=== PATIENT | female | born 2005 | race Caucasian/White ===

== ENCOUNTER 2025-03-16 13:51 | Emergency (ER) | payer BC ==
[2025-03-16 15:03] LABS: #Basophils 0.06 10x3/uL (0.0-0.2); #Eosinophils 0.15 10x3/uL (0.0-0.5); #Monocytes 0.75 10x3/uL (0.0-1.1); #Neutrophils 10.33 10x3/uL (1.5-8.4); %Basophils 0.5 % (0.0-2.0); %Eosinophils 1.1 % (0.0-6.0); %Lymphocytes 13.0 % (18.0-47.0); %Monocytes 5.7 % (0.0-10.0); %Neutrophils 77.8 % (40.0-75.0); Hematocrit 32.9 % (34.9-44.5); Hemoglobin 10.9 g/dL (12.0-15.5); Mean Corpuscular Hemoglobin 28.7 pg (27.0-33.0); Mean Corpuscular Volume 86.6 fL (81.6-98.3); Platelet Count 216 10x3/uL (150-450); Red Blood Cell (RBC) Count 3.80 10x6/uL (3.90-5.03); White Blood Cell (WBC) Count 13.26 10x3/uL (3.5-10.5)
[2025-03-16 15:28] LABS: ALT (SGPT) 9 U/L (Less than 34); AST (SGOT) 16 U/L (11-34); Albumin 3.0 g/dL (3.1-4.5); Alkaline Phosphatase 102 U/L (40-100); Anion Gap 12 mmol/L (10-20); BUN (Urea Nitrogen) 9 mg/dL (7.0-18.7); Bilirubin, Total 0.3 mg/dL (0.3-1.2); Calc. Creatinine Clearance 0 mL/min (70-130); Calcium 8.8 mg/dL (7.8-10.44); Carbon Dioxide 20 mmol/L (22-29); Chloride 108 mmol/L (98-107); Globulin 3.6 g/dL (2.4-3.5); Glucose 72 mg/dL (70-105); Potassium 4.1 mmol/L (3.5-5.1); Sodium 136 mmol/L (136-145)
[2025-03-16 15:45] LABS: Glucose, Urine (Dipstick) Normal (Negative); Leukocyte Negative (Negative); Protein, Urine (Dipstick) Negative (Neg-Trace); Specific Gravity, Urine 1.015 (1.005-1.030)
[2025-03-16 16:40] LABS: Bacteria/HPF 1+ HPF (None Seen); CAUTI Indications for Culture Pregnancy; RBC/HPF None Seen HPF (0-3); WBC/HPF None Seen HPF (0-3)
[2025-03-16 16:41] LABS: Urine Culture Reflex Yes Yes
== END 2025-03-16 16:00 | disposition home or self-care (01) ==
LOC: CSHERS 13:51
DX: O99.283 Endocrine, nutritional and metabolic diseases complicating pregnancy, third trimester (principal); E86.0 Dehydration; Z3A.32 32 weeks gestation of pregnancy
CPT/HCPCS: 80053; 81001; 85025; 87086; 93005; 96360

== ENCOUNTER 2025-05-10 19:00 | Inpatient (IN) | payer BC, OTHER ==
[2025-05-10] MEDS ORDERED: Carboprost 250 MCG/ML AMP IM PRN (21:12)
[2025-05-10] MEDS ORDERED: Ondansetron PF 4 MG/2 ML Vial IVP PRN (21:12)
[2025-05-10] MEDS ORDERED: Methylergonovine 0.2 MG/ML VIAL IM PRN (21:12)
[2025-05-10] MEDS ORDERED: Tranexamic Acid 1,000 MG/10 ML VIAL IVP PRN (21:12)
[2025-05-10] MEDS ORDERED: Acetaminophen 500 MG TAB PO PRN (21:12)
[2025-05-10] MEDS ORDERED: Diphenoxylate HCl/Atropine Tablet PO PRN ×2 (21:12)
[2025-05-10] MEDS ORDERED: Lidocaine 1% (PF) 30 ML VIAL SC PRN (21:12)
[2025-05-10] MEDS ORDERED: hydrALAZINE 20 MG/ML VIAL SLOW IVP PRN (21:12)
[2025-05-10 21:57] VITALS: BMI 34.3
[2025-05-10 22:17] LABS: Hematocrit 34.2 % (34.9-44.5); Hemoglobin 11.4 g/dL (12.0-15.5); Mean Corpuscular Hemoglobin 27.7 pg (27.0-33.0); Mean Corpuscular Volume 83.2 fL (81.6-98.3); Platelet Count 204 10x3/uL (150-450); Red Blood Cell (RBC) Count 4.11 10x6/uL (3.90-5.03); White Blood Cell (WBC) Count 10.13 10x3/uL (3.5-10.5)
[2025-05-10 23:00] LABS: Hep B Surf Ag - L&D Non-Reactive S/CO (NonReactive)
[2025-05-10 23:01] LABS: Syphilis Antibody Index 0.10 S/CO (<1.00 Non-Reactive)
[2025-05-11] MEDS ORDERED: diphenhydrAMINE 50 MG/ML VIAL IVP PRN (16:32)
[2025-05-11] MEDS ORDERED: Ondansetron PF 4 MG/2 ML Vial IVP PRN (16:32)
[2025-05-11] MEDS ORDERED: fentaNYL 2 mcg/Ropivacaine 0.2% Epidural 100 ML CADD EPIDURAL SCH (16:45)
[2025-05-11] MEDS ORDERED: Communication Order-Pharmacy FS SCH (16:45)
[2025-05-11] MEDS ORDERED: Oxytocin 30 units/NS 500 ML 500 ML IV SCH (18:30)
[2025-05-12] MEDS: Oxytocin 30 units/NS 500 ML 500 ML IV SCH (02:43)
[2025-05-12] MEDS ORDERED: Milk Of Magnesia 30 ML UDCUP PO PRN (04:55)
[2025-05-12] MEDS ORDERED: hydrALAZINE 20 MG/ML VIAL SLOW IVP PRN (04:55)
[2025-05-12] MEDS ORDERED: Preparation H Ointment 28 GM TUBE PR PRN (04:55)
[2025-05-12] MEDS ORDERED: Bisacodyl 10 MG SUPP PR PRN (04:55)
[2025-05-12] MEDS ORDERED: Lanolin Ointment 7 GM TUBE TOP PRN (04:55)
[2025-05-12] MEDS ORDERED: diphenhydrAMINE 25 MG CAP PO PRN (04:55)
[2025-05-12] MEDS: Ibuprofen 800 MG TAB PO SCH (06:30)
[2025-05-12] MEDS: Lidocaine 1% (PF) 30 ML VIAL ONE (09:12)
[2025-05-12] MEDS: fentaNYL/Ropivacaine Epidural 100 ML ONE (09:12)
[2025-05-12] MEDS: Ferrous Sulfate 325 MG TAB PO SCH (09:14)
[2025-05-13] MEDS: Acetaminophen 325 MG TAB PO PRN (12:59)
[2025-05-14 08:41] VITALS: BP 107/65; TEMP 97.7
== END 2025-05-14 12:35 | disposition home or self-care (01) | DRG 807 ==
LOC: CSHLD 21:13 → CSHPP 05-12 05:30
PROVIDERS: ADMIT Family Medicine; ATTEND Family Medicine
PROC: 10907ZC Drainage of Amniotic Fluid, Therapeutic from Products of Conception, Via Natural or Artificial Opening (ICD-10-PCS; 2025-05-11)
PROC: 10H07YZ Insertion of Other Device into Products of Conception, Via Natural or Artificial Opening (ICD-10-PCS; 2025-05-11)
PROC: 10E0XZZ Delivery of Products of Conception, External Approach (ICD-10-PCS; principal; 2025-05-12)
PROC: 0KQM0ZZ Repair Perineum Muscle, Open Approach (ICD-10-PCS; 2025-05-12)
DX: O48.0 Post-term pregnancy (principal); Z37.0 Single live birth; O99.214 Obesity complicating childbirth; E66.9 Obesity, unspecified; Z3A.40 40 weeks gestation of pregnancy; O99.02 Anemia complicating childbirth; D64.9 Anemia, unspecified; O69.9XX0 Labor and delivery complicated by cord complication, unspecified, not applicable or unspecified; O35.EXX0 Maternal care for other (suspected) fetal abnormality and damage, fetal genitourinary anomalies, not applicable or unspecified; O76 Abnormality in fetal heart rate and rhythm complicating labor and delivery; O70.1 Second degree perineal laceration during delivery
CPT/HCPCS: 36415; 51702; 85027; 86780; 86850; 86900; 86901; 87340; J2590; J7120